=== PATIENT | male | born 1965 | race Caucasian/White ===

== ENCOUNTER 2019-06-19 08:04 | Day surgery (SDC) | payer OTHER, MEDICAID ==
[~2019-06-19] VITALS: Ht 180.3 cm; Wt 108.9 kg
[2019-06-19 08:39] VITALS: BP 148/95
[2019-06-19 12:10] VITALS: BP 146/80
== END 2019-06-19 11:40 | disposition home or self-care (01) ==
LOC: DS 08:04 → GI 09:30 → OR 11:30 → DS 11:40
DX: Z12.11 Encounter for screening for malignant neoplasm of colon (principal); D12.3 Benign neoplasm of transverse colon; K63.89 Other specified diseases of intestine; K21.9 Gastro-esophageal reflux disease without esophagitis; B96.81 Helicobacter pylori [H. pylori] as the cause of diseases classified elsewhere; K29.50 Unspecified chronic gastritis without bleeding; K44.9 Diaphragmatic hernia without obstruction or gangrene; F17.210 Nicotine dependence, cigarettes, uncomplicated; F41.9 Anxiety disorder, unspecified; Z79.899 Other long term (current) drug therapy
CPT/HCPCS: 45378; J1200; J1610; J2250; J2310; J3010; J3490